=== PATIENT | male | born 1930 | race Caucasian/White ===

== ENCOUNTER 2018-09-04 15:19 | Emergency (ER) | payer OTHER, BC ==
[2018-09-04 15:31] VITALS: BP 167/70; PULSE 85; TEMP 98.3; BMI 23.1
--- NOTE | 2018-09-04 15:31 | PDOC ---
Rapid Medical Evaluation Chief Complaint: Hemoptysis Medical Evaluation: Allergies Allergy/AdvReac Type Severity Reaction Status Date / Time Penicillins Allergy Severe Hives Verified 10/24/15 08:23 09/04/18 15:27 Pt presents for coughing up blood. Pt states it started approximately 20 minutes ago. Pt states he took his usual medications and felt one got stuck. He tried coughing it up and noticed blood so he came to the ED Exam: Well appearing, lungs CTAB Orders: Labs, IV, x-ray Pt to proceed to ED for further evaluation Discharge Disposition - Diagnosis Coughing up blood - Referrals Referrals: Marcellus Russ MD [Primary Care Provider] - - Patient Instructions - Post Discharge Activity
[2018-09-04 16:17] LABS: BASO % 0.4 % (0-2.0); EOS % 0.7 % (0-4.5); HEMATOCRIT 33.6 % (35.4-49); HEMOGLOBIN 11.5 GM/dL (11.7-16.9); LYMPH % 4.6 % (8-40); MCH 32.5 pg (25.7-33.7); MCHC 34.2 g/dl (32.0-35.9); MEAN CELL VOLUME 94.8 fl (80-96); MEAN PLT VOLUME 8.4 fl (7.5-11.1); MONO % 9.3 % (3.8-10.2); PLATELET COUNT 238 K/MM3 (134-434); RBC 3.54 M/mm3 (4.00-5.60); RDW 13.5 % (11.9-15.9); WHITE BLOOD COUNT 7.3 K/mm3 (4.0-10.0)
[2018-09-04 16:41] LABS: ALBUMIN 3.3 g/dl (3.4-5.0); ALK PHOS 95 U/L (45-117); ANION GAP 11 MMOL/L (8-16); BILIRUBIN,TOTAL 0.4 mg/dL (0.2-1); BLOOD UREA NITROGEN 28 mg/dL (7-18); CALCIUM 8.4 mg/dL (8.5-10.1); CHLORIDE 107 mmol/L (98-107); CO2 23 mmol/L (22-28); CREATININE 1.2 mg/dL (0.55-1.3); GLUCOSE,RANDOM 102 mg/dL (74-106); POTASSIUM 4.4 mmol/L (3.5-5.1); SGOT/AST 28 U/L (15-37); SGPT/ALT 22 U/L (13-61); SODIUM 140 mmol/L (136-145); TOT PROT 6.6 g/dl (6.4-8.2)
[2018-09-04 16:44] LABS: INR 0.97 (0.83-1.09); PROTHROMBIN TIME (PATIENT) 11.4 SEC (9.7-13.0)
--- NOTE | 2018-09-04 18:02 | PDOC ---
History of Present Illness - General Chief Complaint: Hemoptysis Stated Complaint: COUGH BLOOD Time Seen by Provider: 09/04/18 15:31 History Source: Patient Exam Limitations: No Limitations - History of Present Illness Initial Comments: 09/04/18 17:58 Mr. Goldstein is a 87 yo M with a hx of prostate CA (in remission) and arthritis presents to the emergency department s/p 2x episodes of bloody sputum after ingesting medication that was painful and described as "stuck" in his esophagus. Per the patient, the event occurred at 3 pm. He states he swallowed his medication and it felt like it got stuck, prompting him to cough. He coughed approximately 10 cc of phlegm with "specks" of red blood. He had a second episode minutes later with more red blood. He denies feeling general malaise, fevers, night sweats, chest pain, SOB, recent sick contacts, exposure to TB, hx of TB, working in a long term, half-way or hospital, and hx of peptic ulcer disease. Denies the following: fever, chills, nausea, vomiting, recent visual changes, abdominal pain, dysuria, hematuria, melena, hematochezia, and leg pain/swelling. Recently started meloxicam 1.5 months ago and uses it 1x/ daily. Pmhx: Refer to above Shx: Left knee replacement Meds: omega 3, meloxicam Allergies: NKDA Social: Denies tobacco, alcohol, and substance abuse. Past History - Past Medical History Allergies/Adverse Reactions: Allergies Allergy/AdvReac Type Severity Reaction Status Date / Time Penicillins Allergy Severe Hives Verified 09/04/18 15:31 Home Medications: Ambulatory Orders Aspirin [ASA -] 81 mg PO DAILY 12/03/12 Glucosamine Sulfate Dipot Chlr [Glucosamine] 1,000 mg PO BID 12/03/12 Krill Oil/[place]-3/Dha/Epa [[place]-3 Krill Oil Softgel] 1 each PO DAILY 12/03/12 FA/Mv,Ca,Iron,Min/Lycopene/Lut [Centrum Tablet] 1 each PO DAILY 02/20/15 Doxycycline Hyclate [Periostat] 40 mg PO DAILY 08/21/15 Ranitidine [Zantac -] 150 mg PO DAILY 10/18/15 Antiox.mv No.12/Omeg3s/Lut/Nissa [Macular Benefits Combo Pack] 1 each PO DAILY 09/11 Ascorbic Acid [Vitamin C] 1,000 mg PO DAILY 06/06/16 Calcium Carbonate [Tums] 200 mg PO PRN PRN 06/06/16 Meloxicam [Mobic] 15 mg PO DAILY #30 tablet MDD 15mg 08/05/17 Methylprednisolone [Medrol Dose Ezra] 4 mg PO ASDIR #21 tablet MDD 24mg 08/14/17 Meloxicam 15 mg PO DAILY 30 Days #30 tablet MDD 15mg 07/30/18 Anemia: No Asthma: No Cancer: No Cardiac Disorders: Yes (THORACIC AORTIC ANEURYSM) CVA: No COPD: No CHF: No Dementia: No Diabetes: No GI Disorders: Yes (GERD, COLON ADENOMAS, DIVERTICULOSIS) Disorders: No HTN: No Hypercholesterolemia: No Liver Disease: No Seizures: No Thyroid Disease: No - Surgical History Abdominal Surgery: Yes (REPAIR OF RT AND UMBILICAL HERNIA) Appendectomy: No Cardiac Surgery: No Cholecystectomy: No Lung Surgery: No Neurologic Surgery: No Orthopedic Surgery: Yes (SX OF LT SHOULDER SEPERATION, LT KNEE REPLACEMENT) - Immunization History Immunization Up to Date: No - Suicide/Smoking/Psychosocial Hx Smoking History: Never smoked Have you smoked in the past 12 months: No Information on smoking cessation initiated: No Hx Alcohol Use: No Drug/Substance Use Hx: No Substance Use Type: None Hx Substance Use Treatment: No Review of Systems - Review of Systems Able to Perform ROS?: Yes Is the patient limited Danish proficient: No Constitutional: No: Chills, Diaphoresis, Fever, Night Sweats, Weakness HEENTM: No: Blurred Vision, Recent change in vision, Nose Pain, Throat Pain, Mouth Pain Respiratory: Yes: Hemoptysis. No: Cough, Shortness of Breath, SOB with Exertion Cardiac (ROS): No: Chest Pain, Irregular Heart Rate, Palpitations, Syncope, Chest Tightness ABD/GI: No: Blood Streaked Bowels, Constipated, Diarrhea, Nausea, Poor Appetite , Rectal Bleeding, Vomiting, Tarry Stools : No: Burning, Dysuria, Discharge, Hematuria Musculoskeletal: No: Back Pain Integumentary: No: Bruising, Rash Neurological: No: Headache, Numbness, Weakness Psychiatric: No: Stressors Endocrine: No: Unexplained Weight Gain Hematologic/Lymphatic: No: Anemia *Physical Exam - Vital Signs Last Vital Signs Temp Pulse Resp BP Pulse Ox 98.3 F 85 18 167/70 100 09/04/18 15:28 09/04/18 15:28 09/04/18 15:28 09/04/18 15:28 09/04/18 15:28 - Physical Exam General Appearance: Yes: Nourished, Appropriately Dressed. No: Apparent Distress HEENT: positive: EOMI, OTTO. negative: Muffled/Hoarse voice, Pharyngeal Erythema, Tonsillar Exudate, Tonsillar Erythema Neck: positive: Trachea midline. negative: Tender, Lymphadenopathy (R), Lymphadenopathy (L) Respiratory/Chest: positive: Lungs Clear, Normal Breath Sounds. negative: Chest Tender, Respiratory Distress, Accessory Muscle Use, Rhonchi, Stridor, Wheezing, Hyperresonant Cardiovascular: positive: Regular Rhythm, Regular Rate, S1, S2. negative: Systolic Murmur Gastrointestinal/Abdominal: positive: Normal Bowel Sounds. negative: Tender Lymphatic: negative: Adenopathy Musculoskeletal: positive: Normal Inspection. negative: CVA Tenderness Extremity: positive: Normal Capillary Refill, Normal Inspection, Normal Range of Motion. negative: Tender Integumentary: positive: Normal Color, Dry, Warm Neurologic: positive: Fully Oriented, Alert, Normal Mood/Affect ED Treatment Course - LABORATORY CBC & Chemistry Diagram: 09/04/18 16:05 09/04/18 16:05 - ADDITIONAL ORDERS Additional order review: Laboratory Results 09/04/18 09/04/18 16:05 16:05 PT with INR 11.40 INR 0.97 Sodium 140 Potassium 4.4 Chloride 107 Carbon Dioxide 23 Anion Gap 11 BUN 28 H Creatinine 1.2 Creat Clearance w eGFR 57.14 Random Glucose 102 Calcium 8.4 L Total Bilirubin 0.4 AST 28 ALT 22 Alkaline Phosphatase 95 Total Protein 6.6 Albumin 3.3 L 09/04/18 16:05 RBC 3.54 L MCV 94.8 MCHC 34.2 RDW 13.5 MPV 8.4 Neutrophils % 85.0 H D Lymphocytes % 4.6 L D Monocytes % 9.3 Eosinophils % 0.7 Basophils % 0.4 Medical Decision Making - Medical Decision Making 09/04/18 18:48 Mr. Goldstein is a 87 yo M with a hx of prostate CA (in remission) and arthritis presents to the emergency department s/p 2x episodes of bloody sputum after ingesting medication that was painful and described as "stuck" in his esophagus Initial vitals: Initial Vital Signs Temp Pulse Resp BP Pulse Ox 98.3 F 85 18 167/70 100 09/04/18 15:28 09/04/18 15:28 09/04/18 15:28 09/04/18 15:28 09/04/18 15:28 Work up: Based on hx and PE, likely symptoms are due to pill esophagitis. He denies systemic ssx including SOB, chest pain, fevers, malaise, night sweats. However there is concern with prostate cancer hx that he may have metastatic disease. Laboratory Tests 09/04/18 09/04/18 09/04/18 16:05 16:05 16:05 WBC 7.3 RBC 3.54 L Hgb 11.5 L Hct 33.6 L MCV 94.8 MCH 32.5 MCHC 34.2 RDW 13.5 Plt Count 238 MPV 8.4 Absolute Neuts (auto) 6.2 Neutrophils % 85.0 H D Lymphocytes % 4.6 L D Monocytes % 9.3 Eosinophils % 0.7 Basophils % 0.4 Nucleated RBC % 0 PT with INR 11.40 INR 0.97 Sodium 140 Potassium 4.4 Chloride 107 Carbon Dioxide 23 Anion Gap 11 BUN 28 H Creatinine 1.2 Creat Clearance w eGFR 57.14 Random Glucose 102 Calcium 8.4 L Total Bilirubin 0.4 AST 28 ALT 22 Alkaline Phosphatase 95 Total Protein 6.6 Albumin 3.3 L Blood Type Antibody Screen 09/04/18 16:05 WBC RBC Hgb Hct MCV MCH MCHC RDW Plt Count MPV Absolute Neuts (auto) Neutrophils % Lymphocytes % Monocytes % Eosinophils % Basophils % Nucleated RBC % PT with INR INR Sodium Potassium Chloride Carbon Dioxide Anion Gap BUN Creatinine Creat Clearance w eGFR Random Glucose Calcium Total Bilirubin AST ALT Alkaline Phosphatase Total Protein Albumin Blood Type A POSITIVE Antibody Screen Negative CXR did not show acute pathologies, free air, widened mediastinum, and masses. Radiology noted cervantes appearance in the right hilum. labs were within normal limits not suggestive of anemia or leukocytosis. The patient was reassessed and he was asymptomatic. No subsequent episodes in the ED. It was relayed to the patient the results of the chest xray and the importance of getting CT chest with his primary medical doctor to rule out malignancy. He stated he has an appointment with his PMD next week and will follow up with it. The patient understood the plan and agreed to it. Dispo: DC *DC/Admit/Observation/Transfer Diagnosis at time of Disposition: Coughing up blood - Discharge Dispostion Disposition: HOME Decision to Admit order: No - Referrals Referrals: Marcellus Russ MD [Primary Care Provider] - - Patient Instructions Printed Discharge Instructions: DI for Hemoptysis Additional Instructions: You were evaluated for the blood in your phlegm after your coughing episode. You received a chest xray in the department that did not show acute processes. Your lab work was within normal limits. Please follow up with your primary medical doctor with 48-72 hours for follow up care and management. Please return to the emergency department if you experience continued blood in your coughs, develop fever and chills, develop nausea and vomiting, develop new body aches, and have increased weakness. Please make sure to follow up with your primary medical doctor within the 48-[address] to [address] chest to rule out metastatic cancer that possibly could have spread from the prostate. Thank you. - Post Discharge Activity
--- NOTE | 2018-09-04 18:04 | PDOC ---
Attending Attestation - Resident Resident Name: Shashi Villarreal (x) - ED Attending Attestation I have performed the following: I have examined & evaluated the patient, The case was reviewed & discussed with the resident, I agree w/resident's findings & plan, Exceptions are as noted - HPI HPI: 09/04/18 17:59 The patient is an 87-year-old male with past medical history significant for hx of nosebleeds, OA(R. hip), GERD, Enlarged Prostate presents to the emergency department with blood in his sputum x 1 day. The patient reports he was taking his usual medication about 20 minutes [employer]ETING [employer] when he felt one of the pills get stuck in his throat. The patient reports he tried to cough up the medication when he started to notice streaks of blood in his sputum. He notes that he has since felt the pill pass and has not had any additional episodes of bloody sputum. Pt denies any recent F/C. No cough other than this episode after he choked on his pill. Denies hx of GI bleeding, diarrhea, nausea, vomiting, urinary symptoms or changes in bowel habits. Pt denies CP/SOB. Allergies: Penicillins Social history: No past or present use of tobacco or recreational drugs. Reports alcohol use. Surgical history: L. TKR (06/01/[address] Campuzano), Resection of the transverse Carpal ligament L. hand and wrist, epineurotomy L. median nerve (10/24/[address] Campuzano), back cys surgery (by Dr. Guzmán). PCP: Dr. Gaby Russ. - Physicial Exam PE: 09/04/18 18:01 "GENERAL: Awake, alert, and fully oriented, in no acute distress. HEAD: No signs of trauma EYES: PERRLA, EOMI, sclera anicteric, conjunctiva clear ENT: Auricles normal inspection, hearing grossly normal, nares patent, oropharynx clear without exudates. Moist mucosa NECK: Nontender, no stepoffs, Normal ROM, supple, no lymphadenopathy, JVD, or masses LUNGS: Breath sounds equal, clear to auscultation bilaterally. No wheezes, and no crackles HEART: Regular rate and rhythm, normal S1 and S2, no murmurs, rubs or gallops ABDOMEN: Soft, nontender, normoactive bowel sounds. No guarding, no rebound. No masses EXTREMITIES: Normal range of motion, no edema. No clubbing or cyanosis. No cords, erythema, or tenderness NEUROLOGICAL: Cranial nerves II through XII intact. 5/5 strength and sensation in all extremities, Normal speech, normal gait, normal cerebellar function SKIN: Warm, Dry, normal turgor, no rashes or lesions noted. - Medical Decision Making 09/04/18 18:01 87 M with single episode of bloody sputum after pill was stuck in his throat. Now asymptomatic. Likely pill esophagitis. Pt with no CP, no additional episodes of hemoptysis. Will obtain CXR to r/o pneumomediastinum/esophageal rupture, though very unlikely given pt's well appearance. Pt with h/o prostate CA, will check for metastasis with CXR. - Labs - CXR - PO challenge 09/04/18 18:13 CXR clear on my read, no free air, no pneumomediastinum, no masses Labs wnl, Hb stable Pt with no additional episodes of hemoptysis. Able to tolerate PO without pain or discomfort Pt given strict return precautions and understands need to f/u with PMD for CT scan to r/o malignancy. Pt is well appearing, with normal vitals. Clinically stable for DC at this time. I discussed the physical exam findings, ancillary test results and final diagnoses with the patient. I answered all of the patient's questions. The patient was satisfied with the care received and felt comfortable with the discharge plan and treatment plan. The patient agrees to follow up with the primary care physician within 24-72 hours.
== END 2018-09-04 18:26 | disposition home or self-care (01) ==
LOC: JER 15:19
DX: R04.2 Hemoptysis (principal); Z85.46 Personal history of malignant neoplasm of prostate; M16.11 Unilateral primary osteoarthritis, right hip; K21.9 Gastro-esophageal reflux disease without esophagitis; Z86.79 Personal history of other diseases of the circulatory system; Z87.19 Personal history of other diseases of the digestive system
CPT/HCPCS: 36415; 71046-TC-FY; 80053; 85025; 85610; 86850; 86900; 86901; 99281-25

== ENCOUNTER → 2018-11-24 | Day surgery (SDC) | payer OTHER, BC ==
--- NOTE | 2018-11-25 16:19 | PATH ---
Cytology Non-Gynecological Report Patient Name: PUSHPA KHOURY Med. Rec. #: [id number] /Age/Gender: 1930 (Age: 88) / M Account: [id number] Location: RADIOLOGY INTER Taken: 11/24/2018 Received: 11/24/2018 Reported: 11/25/2018 Physicians: Prasanna Mcfadden M.D. Specimen(s) Received THYROID FNA Clinical History Thyroid nodule, 4.88 x 2.20 x 3.15 cm Final Diagnosis THYROID, FINE NEEDLE ASPIRATION: SATISFACTORY FOR EVALUATION. BETHESDA CLASS II: BENIGN. 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 SMALL FOLLICULAR CELLS, FEW MACROPHAGES, AND COLLOID PRESENT. Electronically Signed Tanika Franco M.D. Gross Description Received are eight direct smears, four of which are air-dried and Diff-Quik stained, and four of which are alcohol fixed and Pap stained. Also received is 20 ml of bloody formalin from which one cellblock is prepared.
== END | disposition home or self-care (01) ==
LOC: JRADIR 10:42
PROVIDERS: ATTEND Otolaryngology
PROC: 0G9K3ZX Drainage of Thyroid Gland, Percutaneous Approach, Diagnostic (ICD-10-PCS; principal; 2018-11-24)
PROC: BG44ZZZ Ultrasonography of Thyroid Gland (ICD-10-PCS; 2018-11-24)
DX: E04.1 Nontoxic single thyroid nodule (principal)
CPT/HCPCS: 76942; 88173; 88305-TC

== ENCOUNTER → 2018-12-01 | Day surgery (SDC) | payer OTHER, BC ==
--- NOTE | 2018-12-02 16:19 | PATH ---
Cytology Non-Gynecological Report Patient Name: PUSHPA KHOURY Med. Rec. #: [id number] /Age/Gender: 1930 (Age: 88) / M Account: [id number] Location: RADIOLOGY INTER Taken: 12/01/2018 Received: 12/01/2018 Reported: 12/02/2018 Physicians: Prasanna Mcfadden M.D. Specimen(s) Received FNA THYROID Clinical History Thyroid nodule Final Diagnosis THYROID, LEFT, FINE NEEDLE ASPIRATION: SATISFACTORY FOR EVALUATION BETHESDA CLASS II: BENIGN CYTOLOGIC FINDINGS ARE CONSISTENT WITH A BENIGN FOLLICULAR NODULE. Electronically Signed Leland Villar M.D. Gross Description Received are eight direct smears, four of which are air-dried and Diff-Quik stained, and four of which are alcohol fixed and Pap stained. Also received is 15 ml of bloody formalin from which one cellblock is prepared.
== END | disposition home or self-care (01) ==
LOC: JRADIR 09:29
PROVIDERS: ATTEND Otolaryngology
PROC: 0G9G3ZX Drainage of Left Thyroid Gland Lobe, Percutaneous Approach, Diagnostic (ICD-10-PCS; principal; 2018-12-01)
PROC: BG44ZZZ Ultrasonography of Thyroid Gland (ICD-10-PCS; 2018-12-01)
DX: E04.1 Nontoxic single thyroid nodule (principal)
CPT/HCPCS: 76942; 88173; 88305-TC

== ENCOUNTER 2019-01-06 07:55 | Day surgery (SDC) | payer OTHER, BC ==
[2019-01-05 13:19] VITALS: BMI 25.2
[2019-01-06 10:21] VITALS: TEMP 99.5
[2019-01-06 11:29] VITALS: BP 117/79; PULSE 69
--- NOTE | 2019-01-07 16:28 | PATH ---
Surgical Pathology Report Patient Name: PUSHPA KHOURY [facility]. Rec. #: [id number] /Age/Gender: 1930 (Age: 88) / M Account: [id number] Location: ASU-ENDOSCOPY Taken: 01/06/2019 Received: 01/06/2019 Reported: 01/07/2019 Physicians: Tashi Gandhi M.D. Specimen(s) Received POLYP, CECUM Clinical History Adenoma surveillance Postoperative diagnosis: Colon polyp, diverticulosis Final Diagnosis CECUM, POLYP, BIOPSY: TUBULAR ADENOMA. Electronically Signed Tanika Franco M.D. Gross Description Received in formalin, labeled "polyp cecum" is a key, irregular portion of soft tissue measuring 0.4 cm. in greatest dimension. The specimen is submitted in toto in one cassette. 01/06/201901/06/2019
== END 2019-01-06 11:31 | disposition home or self-care (01) ==
LOC: JASU-ENDO 07:55
PROVIDERS: ATTEND Internal Medicine Gastroenterology
PROC: 0DBH8ZX Excision of Cecum, Via Natural or Artificial Opening Endoscopic, Diagnostic (ICD-10-PCS; principal; 2019-01-06 09:15)
DX: Z12.11 Encounter for screening for malignant neoplasm of colon (principal); Z86.010 Personal history of colon polyps; D12.0 Benign neoplasm of cecum
CPT/HCPCS: 88305-TC